=== PATIENT | female | born 1990 | race Caucasian/White ===

== ENCOUNTER → 2018-02-11 | Outpatient (CLI) | payer OTHER ==
[~2018-02-11] MED LIST: ALBU90OI INH; AMOX500 PO; BIRTH CONTROL; CEPH500 PO; ERYT.5TO RIGHTEYE; IBUP600 PO; IBUP800 PO; PERM5TC TOP; PRED10 PO; PRED20 PO; PROM25 PO; VARE1 PO; ZZZQUIL25 MG PO; [UNRECOGNIZED DRUG - REMARK]
== END ==
LOC: LAB SHORT 15:41 → LAB EV 15:41
DX: J02.9 Acute pharyngitis, unspecified (principal)
CPT/HCPCS: 87070

== ENCOUNTER → 2021-07-12 | Outpatient (CLI) | payer OTHER ==
[2021-07-15 09:22] LABS: CHLAMYDIA TRACHOMATIS, NAA Positive (Negative)
== END | disposition home or self-care (01) ==
LOC: LAB SHORT 10:30
PROVIDERS: Nurse Practitioner
DX: Z20.2 Contact with and (suspected) exposure to infections with a predominantly sexual mode of transmission (principal)
CPT/HCPCS: 87491; 87591

== ENCOUNTER → 2021-10-09 | Outpatient (CLI) | payer OTHER ==
[2021-10-11 00:10] LABS: CHLAMYDIA TRACHOMATIS, NAA Negative (Negative)
== END ==
LOC: LAB 09:40 → LAB SHORT 09:40
PROVIDERS: Nurse Practitioner Family
DX: A74.9 Chlamydial infection, unspecified (principal)
CPT/HCPCS: 87491; 87591

== ENCOUNTER → 2021-12-22 | Outpatient (CLI) | payer OTHER | END | disposition home or self-care (01) | LOC: LAB 13:30 → LAB SHORT 13:30 | PROVIDERS: Nurse Practitioner Family | DX: Z12.4 Encounter for screening for malignant neoplasm of cervix (principal) | CPT/HCPCS: G0145 ==

== ENCOUNTER 2024-06-21 06:06 | Day surgery (SDC) | payer OTHER ==
[2024-06-21] VITALS (16 sets, daily range): BP systolic 120–146; BP diastolic 78–91
[~2024-06-21] VITALS: Ht 160 cm; Wt 83.0 kg
[~2024-06-21 06:06] MED LIST changes: +RIZATRIPTAN10 MG SL; +[UNRECOGNIZED DRUG - OTHER]
[2024-06-21] MEDS ORDERED: Lactated Ringer's 1,000 ML IV SCH ×2 (06:25→10:05)
[2024-06-21] MEDS ORDERED: CeFAZolin Sodium 2,000 MG in NS 100 ML IV SCH ×2 (06:25→12:00)
[2024-06-21] MEDS ORDERED: Bupivacaine 0.5% HCl 5 MG/ML 30MLVIAL ONE (07:17)
[2024-06-21] MEDS ORDERED: Rocuronium Bromide 10 MG/ML 5ML Injection IV ONE ×2 (07:18→08:32)
[2024-06-21] MEDS ORDERED: propofoL 40 ML IV ONE (07:18)
[2024-06-21] MEDS ORDERED: Lidocaine HCl 2% 20 ML MDV ONE (07:18)
[2024-06-21] MEDS ORDERED: FentaNYL Citrate 50 MCG/ML 2 ML Injection ONE ×3 (07:19→10:08)
[2024-06-21] MEDS ORDERED: Dexamethasone Sod Phos 10 MG/ML 1ML VIAL ONE (07:46)
[2024-06-21] MEDS ORDERED: Ondansetron HCl 2 MG / ML 2ML Vial ONE (09:10)
[2024-06-21] MEDS ORDERED: Sugammadex Sodium 200 MG/2ML SDV (100 MG/ML) ONE (09:12)
[2024-06-21] MEDS ORDERED: Naloxone HCl 0.4MG / ML 1ML Vial IV PRN (10:05)
[2024-06-21] MEDS ORDERED: Ondansetron HCl 2 MG / ML 2ML Vial IV PRN (10:05)
[2024-06-21] MEDS ORDERED: OxyCODONE 5 mg/Acetamin 325 mg TABLET PO PRN ×2 (10:10→12:05)
[2024-06-21] MEDS ORDERED: HYDROmorphone HCl/Pf 1MG SYR IV PRN (10:10)
[2024-06-21] MEDS ORDERED: Promethazine HCl 25 MG Tab PO PRN (10:10)
[2024-06-21] MEDS ORDERED: Ondansetron 4 MG TAB PO PRN (10:10)
[2024-06-21] MEDS ORDERED: Promethazine HCl 12.5 MG Supp PR PRN (10:10)
[2024-06-21] MEDS ORDERED: Simethicone 80 MG Chew PO PRN (10:10)
[2024-06-21] MEDS ORDERED: DiphenhydrAMINE HCL 25 MG Cap PO PRN (10:10)
[2024-06-21] MEDS ORDERED: FLU VACC TS2024-25(6MOS UP)/PF 45 MCG/0.5 ML SYRINGE IM PRN (10:15)
[2024-06-21] MEDS ORDERED: Ketorolac Tromethamine 30mg Vial IV PRN (10:25)
--- NOTE | 2024-06-21 11:22 | NUR ---
POST OP NOTE PT TO ROOM 231 FROM PACU. INCISION SITES C/D/I, NO VAG BLEEDING AT THIS TIME. HEATING PAD IN PLACE FOR PAIN CONTROL. PT DENIES NEED FOR NAUSEA/PAIN MEDS AT THIS TIME. TOLERATING PO ICE WATER AND CRACKERS/JELLO. CALL LIGHT IN REACH, SPOUSE AT BEDSIDE.
[2024-06-21] MEDS ORDERED: Percocet 5-3251 EACH PO (15:43)
[2024-06-21] MEDS ORDERED: PROM25 PO (15:45)
[2024-06-21] MEDS ORDERED: SIME80CH PO (15:45)
--- NOTE | 2024-06-21 16:06 | NUR ---
DISCHARGE NOTE PT IS AMBULATING THROUGH HALLWAYS INDEPENDENTLY, VOIDING, TOLERATING REG DIET AND FLUIDS, ABX GIVEN ORDERED. PT HAS SCRIPTS FILLED AT HOME ALREADY. INCISION SITES C/D/I, SCANT VAG BLEEDING. VSS. DISCHARGE INSTRUCTIONS REVIEWED W/ PT, COPY GIVEN TO PT. ABD BINDER IN PLACE. PT DC'D VIA WC TO PRIVATE RIDE HOME IN STABLE CONDITION W/ PERSONAL BELONGINGS.
== END 2024-06-21 16:14 | disposition home or self-care (01) ==
LOC: ORSCMMR 06:06 → ORD 07:30 → ORSCMMR 07:30 → ORD 08:00 → SURS 10:55 → ORSCMMR 16:14
PROVIDERS: Obstetrics & Gynecology
PROC: 0UT0FZZ Resection of Right Ovary, Via Natural or Artificial Opening With Percutaneous Endoscopic Assistance (ICD-10-PCS; principal; 2024-06-21 07:30)
PROC: 0U5F4ZZ Destruction of Cul-de-sac, Percutaneous Endoscopic Approach (ICD-10-PCS; principal; 2024-06-21 07:30)
PROC: 0UT9FZZ Resection of Uterus, Via Natural or Artificial Opening With Percutaneous Endoscopic Assistance (ICD-10-PCS; principal; 2024-06-21 07:30)
PROC: 0UT7FZZ Resection of Bilateral Fallopian Tubes, Via Natural or Artificial Opening With Percutaneous Endoscopic Assistance (ICD-10-PCS; principal; 2024-06-21 07:30)
DX: N92.1 Excessive and frequent menstruation with irregular cycle (principal); N94.6 Dysmenorrhea, unspecified; D25.9 Leiomyoma of uterus, unspecified; N80.351 Endometriosis of the right pelvic sidewall, unspecified depth; N83.11 Corpus luteum cyst of right ovary; N73.6 Female pelvic peritoneal adhesions (postinfective); K21.9 Gastro-esophageal reflux disease without esophagitis; F41.9 Anxiety disorder, unspecified; F32.A Depression, unspecified; E66.9 Obesity, unspecified; Z68.32 Body mass index [BMI] 32.0-32.9, adult; Z79.899 Other long term (current) drug therapy
CPT/HCPCS: 84703; 86850; 86900; 86901; 88307; A9270; J0690; J1100; J2405; J2704; J3010; J7120

== ENCOUNTER → 2024-09-17 | Outpatient (CLI) | payer OTHER ==
[~2024-09-17] MED LIST changes: +Percocet 5-3251 EACH PO; +SIME80CH PO
== END ==
LOC: LAB 09:55 → LAB SHORT 09:55
DX: J02.9 Acute pharyngitis, unspecified (principal)
CPT/HCPCS: 87081

== ENCOUNTER 2025-04-26 07:56 | Emergency (ER) | payer OTHER ==
[~2025-04-26] VITALS: Ht 160 cm; Wt 86.2 kg
[2025-04-26 08:30] LABS: Source, Urine Clean Catch
[2025-04-26] MEDS ORDERED: Ondansetron HCl 2 MG / ML 2ML Vial IV PRN (08:30)
[2025-04-26 08:35] LABS: BASOPHILS ABSOLUTE AUTO 0.03 K/mm3 (0.00-0.23); BASOPHILS PERCENT AUTO 0 % (0-2); EOSINOPHILS ABSOLUTE AUTO 0.04 K/mm3 (0.00-0.68); EOSINOPHILS PERCENT AUTO 0 % (0-6); Hematocrit 46.0 % (33.0-51.0); Hemoglobin 15.9 g/dL (11.5-16.0); IMMATURE GRAN ABSOLUTE AUTO 0.02 K/mm3 (0.00-0.10); IMMATURE GRAN PERCENT AUTO 0 % (0-1); LYMPHOCYTES ABSOLUTE AUTO 1.80 K/mm3 (0.84-5.20); LYMPHOCYTES PERCENT AUTO 18 % (21-46); MONOCYTES ABSOLUTE AUTO 0.55 K/mm3 (0.16-1.47); MONOCYTES PERCENT AUTO 5 % (4-13); Mean Corpuscular HGB Conc 34.6 g/dL (31.5-36.5); Mean Corpuscular Volume 83 fL (80-100); NEUTROPHILS ABSOLUTE AUTO 7.67 K/mm3 (1.96-9.15); NEUTROPHILS PERCENT AUTO 76 % (41-73); NRBC ABSOLUTE 0.00 K/mm3 (0.00-0.02); NRBC Auto 0.0 /100 WBC (0.0-0.2); Platelet Count 309 K/mm3 (150-400); RDW Coefficient Variation 12.7 % (11.7-14.2); RDW Standard Deviation 38.6 fL (35.1-46.3)
[2025-04-26 08:37] LABS: Bilirubin, Urine Neg (Neg); Glucose Qualitative, Urine Neg (Neg); Ketones, Urine Neg (Neg); Leukocyte Esterase, Urine Neg (Neg); Protein, Urine 2+ (Neg); Specific Gravity, Urine 1.015 (1.003-1.022); Urobilinogen, Urine NORM (Normal)
[2025-04-26 08:41] LABS: Color, Urine Yellow (P-Yellow)
[2025-04-26 08:43] LABS: Red Blood Cells, Urine 0-2 /hpf (0-2); White Blood Cells, Urine 0-2 /hpf (0-5)
[2025-04-26 08:52] LABS: Alanine Aminotransfer (ALT/SGP 30.0 U/L (12-78); Albumin, Blood 4.2 g/dL (3.4-5.0); Albumin/Globulin Ratio 1.2 (0.8-1.8); Anion Gap 7.0 mmol/L (3-11); Aspartate Aminotrans (AST/SGOT 13.0 U/L (12-37); Bilirubin, Total 0.5 mg/dL (0.1-1.0); Blood Urea Nitrogen 9.0 mg/dL (8-24); CO2, Blood 30.0 mmol/L (21-32); Calcium, Blood 9.2 mg/dL (8.5-10.1); Chloride, Blood 101.0 mmol/L (98-108); Creatinine, Blood 0.83 mg/dL (0.40-1.00); Globulin, Blood 3.6 g/dL (2.2-4.0); Glucose, Blood 127.0 mg/dL (70-99); Potassium, Blood 3.2 mmol/L (3.5-5.5); Sodium, Blood 135.0 mmol/L (136-145); Total Protein, Blood 7.8 g/dL (6.4-8.2)
[2025-04-26] MEDS ORDERED: NS 1,000 ML IV SCH (09:25)
[2025-04-26] MEDS ORDERED: Metoclopramide HCl 5MG / ML 2ML Vial IV ONE (11:10)
[2025-04-26] MEDS ORDERED: ONDA4ODT MM (11:27)
[2025-04-26] MEDS ORDERED: HYDR1TAB94 PO (11:55)
[2025-04-26 12:16] VITALS: BP 125/77
== END 2025-04-26 12:17 | disposition home or self-care (01) ==
LOC: ER 07:56
PROVIDERS: Student in an Organized Health Care Education/Training Program
DX: K85.90 Acute pancreatitis without necrosis or infection, unspecified (principal); Z79.899 Other long term (current) drug therapy
CPT/HCPCS: 80053; 81001; 81025; 83690; 85025; 93005; 93010; 96374; 96375; 99284-25; J2405; J2765; J7030

== ENCOUNTER → 2025-04-30 | Outpatient (CLI) | payer OTHER ==
[~2025-04-30] MED LIST changes: +HYDR1TAB94 PO; +ONDA4ODT MM
[2025-04-30 19:41] LABS: CHOL/HDL RATIO 3.2; Cholesterol 169 mg/dL (50-200); HDL Cholesterol 52 mg/dL (>39); LDL/HDL RATIO 1.7; Low Density Lipoprotein Chol 89 mg/dL (0-110); Triglycerides 140 mg/dL (30-140); Very Low Density Lipoprot Chol 28 mg/dL (6-28)
== END ==
LOC: LAB SHORT 16:39 → LAB 16:39
PROVIDERS: Student in an Organized Health Care Education/Training Program
DX: K85.90 Acute pancreatitis without necrosis or infection, unspecified (principal)
CPT/HCPCS: 36415; 80061